=== PATIENT | female | born 2000 | race American Indian/Alaskan Native ===

== ENCOUNTER 2021-01-03 12:35 | Outpatient (CLI) | payer BC ==
[2021-01-03 13:06] LABS: Basophils % (Auto) 0.5 % (0.0-1.8); Eosinophils # (Auto) 0.2 K/mm3 (0.0-0.4); Hematocrit 44.9 % (30.3-42.9); Hemoglobin 14.6 gm/dl (10.1-14.3); Mean Corpuscular HGB Conc 32 % (30-34); Mean Corpuscular Volume 87 fl (79-97); Monocytes # (Auto) 0.5 K/mm3 (0.0-0.8); Monocytes % (Auto) 7.9 % (0.0-7.3); Platelet Count 274 K/mm3 (140-440); Red Blood Count 5.18 M/mm3 (3.65-5.03); Red Cell Distribution Width 14.3 % (13.2-15.2)
[2021-01-03 13:33] LABS: Alanine Aminotransferase 12 units/L (7-56); Albumin 4.3 g/dL (3.9-5); BUN/Creatinine Ratio 18; Blood Urea Nitrogen 14 mg/dL (7-17); Calcium 9.2 mg/dL (8.4-10.2); Chol/HDL Ratio 2.63 %; HDL Cholesterol 55 mg/dL (40-59); Hemolysis Index 9; LDL Cholesterol,Direct 91 mg/dL (50-130)
--- NOTE | 2021-01-03 13:52 | XRay Report ---
XR spine lumbosacral 2-3V INDICATION / CLINICAL INFORMATION: BACK PAIN. COMPARISON: None available. FINDINGS: BONES/JOINT(S): No acute fracture or subluxation. No significant degenerative changes. SOFT TISSUES: No significant abnormality. ADDITIONAL FINDINGS: None. Signer Name: Mauricio Ruby MD Signed: 01/03/2021 1:48 PM Workstation Name: [email or web address]
--- NOTE | 2021-01-03 13:52 | XRay Report ---
XR spine thoracic 2V INDICATION / CLINICAL INFORMATION: DORSALGIA. COMPARISON: None available. FINDINGS: BONES/JOINT(S): No acute fracture or subluxation. No significant degenerative changes. SOFT TISSUES: No significant abnormality. ADDITIONAL FINDINGS: None. Signer Name: Mauricio Ruby MD Signed: 01/03/2021 1:48 PM Workstation Name: [id number]
== END 2021-01-03 12:36 | disposition home or self-care (01) ==
LOC: XRAY 12:35
PROVIDERS: ATTEND Internal Medicine
DX: Z13.1 Encounter for screening for diabetes mellitus (principal); Z13.29 Encounter for screening for other suspected endocrine disorder; E55.9 Vitamin D deficiency, unspecified; Z13.220 Encounter for screening for lipoid disorders; Z00.00 Encounter for general adult medical examination without abnormal findings; E53.9 Vitamin B deficiency, unspecified; M54.9 Dorsalgia, unspecified; M54.40 Lumbago with sciatica, unspecified side
CPT/HCPCS: 36415; 72070; 72100; 80053; 80061; 82306; 82607; 83036; 84443; 85025